=== PATIENT | female | born 1945 | race Caucasian/White ===

== ENCOUNTER 2019-01-24 12:11 | Day surgery (SDC) | payer MEDICARE ==
[~2019-01-24] VITALS: Ht 180.3 cm; Wt 122.5 kg
--- NOTE | ~2019-01-24 | OR ---
[facility] [address], [place] [address] Draft DATE OF OPERATION: 01/24/2019 SURGEON: Ruddy Camarena MD PREOPERATIVE DIAGNOSES: 1. Constipation. 2. Atrial fibrillation with chronic anticoagulation. POSTOPERATIVE DIAGNOSES: 1. Extensive diverticulosis. 2. Hyperplastic polyps of rectosigmoid. 3. Possible small adenomatous polyp, right colon (excised). PROCEDURE: Total colonoscopy to cecum with cold morcellation polypectomy x3. ANESTHESIA: Intravenous sedation, fentanyl 100 mcg, Versed 7 mg. INDICATION: This 73-year-old white woman is a patient of Mary Noyola, known to me from the past. She last underwent colonoscopy in 2010. She was noted to have diverticulosis. She is chronically anticoagulated for atrial fibrillation. She is symptom free except for significant constipation, but no associated rectal bleeding. She is off her Coumadin now for surveillance colonoscopy. She understands the risk of bleeding, infection, perforation and wished to proceed. FINDINGS: The prep was good. Complete colonoscopy was undertaken to the cecum. There were numerous diverticula of the sigmoid and left colon. There were scattered diverticula throughout the colon. There were few small hyperplastic polyps in the rectosigmoid which were excised largely and a distinct probable adenomatous small polyp of the right colon which was excised. There were no other findings of concern. DESCRIPTION OF PROCEDURE: The patient was brought to the endoscopy suite and placed in lateral decubitus position, given intravenous sedation to the point of slurred speech and nystagmus. Digital rectal examination was normal. An Olympus video colonoscope was passed in the rectum and manipulated throughout the PATIENT NAME: GUILHERME BELLO OPERATIVE REPORT DATE OF : 47 REPORT #: [id number] PHYSICIAN: RUDDY CAMARENA MD PCP: MARY NOYOLA REPORT IS CONFIDENTIAL AND NOT TO BE RELEASED WITHOUT AUTHORIZATION [facility] [address] [place] [id number] Draft colon noting numerous diverticula of the sigmoid and left colon. Ultimately, scope was passed to the cecum. The ileocecal valve was normal. Irrigation was undertaken. The scope was carefully withdrawn. In the mid ascending colon, was a small adenomatous appearing polyp. This was excised with cold morcellation technique. Further withdrawal of the scope showed no abnormalities to the rectosigmoid where small cluster of hyperplastic changes were noted to represent excised. Retroflexed view showed no other abnormalities. Scope was removed. The patient was taken to the recovery room in good condition. CONCLUDING DIAGNOSES: Adenomatous polyp of right colon completely excised, small hyperplastic polyps also excised. PLAN: Repeat colonoscopy in 5 years or sooner if clinically indicated. She will return to the ongoing care of BRIAN Castañeda. MD ARSENIO Schmid/MCKENZIE /[id number] cc: BRIAN Castañeda Copies: MARY NOYOLA ~ PATIENT NAME: GUILHERME BELLO OPERATIVE REPORT DATE OF : 47 REPORT #: [id number] PHYSICIAN: RUDDY CAMARENA MD PCP: MARY NOYOLA REPORT IS CONFIDENTIAL AND NOT TO BE RELEASED WITHOUT AUTHORIZATION
[~2019-01-24 12:11] MED LIST: CALCIUM + VITA1 EACH PO; DILTIAZEM 24HR180 M1 PO; ERYTHROMYCIN1 GM OS; FISH OIL 1,0001 EAC3 PO; FLAX OIL1000 MG PO; FOLIC ACID0.8 M1 PO; GARLIC1000 MG PO; JANTOVEN4 MG PO; LEVOTHYROXINE88 MCG PO; NEURONTIN300 MG PO; NIACIN500 M1 PO; TRIAMTERENE-HC1 EAC2 PO
[2019-01-24] MEDS ORDERED: MULTIVITAMINS1 EAC7 PO (12:26)
--- NOTE | 2019-01-24 16:46 | NUR ---
01/24/19 1646 Kianna Rainey PT ARRIVES TO PACU SLEEPY. PT CAN BE HEARD PASSING GAS.
== END 2019-01-24 17:35 | disposition home or self-care (01) ==
LOC: DS 12:11 → OPS 12:11 → DS 13:00 → OPS 13:00
PROVIDERS: Surgery
PROC: 0DBP8ZX Excision of Rectum, Via Natural or Artificial Opening Endoscopic, Diagnostic (ICD-10-PCS; 2019-01-24)
PROC: 0DBK8ZX Excision of Ascending Colon, Via Natural or Artificial Opening Endoscopic, Diagnostic (ICD-10-PCS; principal; 2019-01-24 13:00)
DX: D12.2 Benign neoplasm of ascending colon (principal); K62.1 Rectal polyp; K57.30 Diverticulosis of large intestine without perforation or abscess without bleeding; I48.91 Unspecified atrial fibrillation; I10 Essential (primary) hypertension; E03.9 Hypothyroidism, unspecified; Z88.8 Allergy status to other drugs, medicaments and biological substances; Z79.899 Other long term (current) drug therapy; Z79.01 Long term (current) use of anticoagulants
CPT/HCPCS: J2250; J3010; J7120

== ENCOUNTER 2021-12-18 22:59 | Emergency (ER) | payer MEDICARE ==
[~2021-12-18] VITALS: Ht 180.3 cm; Wt 126.0 kg
[~2021-12-18 22:59] MED LIST changes: +MULTIVITAMINS1 EAC7 PO
[2021-12-18] MEDS ORDERED: LASIX40 MG PO (23:27)
[2021-12-18] MEDS ORDERED: K-TAB ER20 MEQ PO (23:27)
== END 2021-12-19 01:09 | disposition home or self-care (01) ==
LOC: ED 22:59
DX: R60.0 Localized edema (principal); I48.91 Unspecified atrial fibrillation; I50.9 Heart failure, unspecified; E03.9 Hypothyroidism, unspecified; Z87.891 Personal history of nicotine dependence; Z88.8 Allergy status to other drugs, medicaments and biological substances; Z79.899 Other long term (current) drug therapy; Z79.01 Long term (current) use of anticoagulants
CPT/HCPCS: 93971; 99283-25

== ENCOUNTER 2025-10-06 13:04 | Emergency (ER) | payer MEDICARE, OTHER ==
[~2025-10-06] VITALS: Ht 180.3 cm; Wt 130.1 kg
--- OUTSIDE RECORDS SUMMARY | ~2025-10-06 | XMS | Continuity of Care Document ---
Demographics + + + | Address | [address] | | | [place] [address] | + + + | Preferred Language | Unknown | + + + | Marital Status | Never | + + + | Lutheran Affiliation | Unknown | + + + | Race | White | + + + | Ethnic Group | Not or | + + + Author + + + | Author | [facility] | + + + | Organization | [facility] | + + + | Address | [address] | | | [place] [address] | + + + | Phone | | + + + Care Team Providers + + + + | Care Fish Agent Name | Role | Phone | + + + + Unavailable | Unavailable | + + + + Allergies No information. Encounters No information. Functional Status No information. Immunizations No information. Medications + + + + | date | description | facility | + + + + | (no date) | GABAPENTIN | [facility] | | | | [facility] | + + + + | (no date) | POTASSIUM CHLORIDE | [facility] | | | | [facility] | + + + + | (no date) | NIACIN | [facility] | | | | [facility] | + + + + | (no date) | GARLIC | [facility] | | | | [facility] | + + + + | (no date) | FUROSEMIDE | [facility] | | | | [facility] | + + + + | (no date) | FOLIC ACID | [facility] | | | | [facility] | + + + + | (no date) | FLAXSEED OIL | [facility] | | | | [facility] | + + + + | (no date) | Erythromycin Base | [facility] | | | | [facility] | + + + + | (no date) | | [facility] | | | TRIAMTERENE/HYDROCHLOROTHIA | [facility] | | | ZID | | + + + + | (no date) | CALCIUM CARBONATE/VITAMIN | [facility] | | | D3 | [facility] | + + + + | (no date) | DILTIAZEM HCL | [facility] | | | | [facility] | + + + + | (no date) | WARFARIN SODIUM | [facility] | | | | [facility] | + + + + | (no date) | LEVOTHYROXINE SODIUM | [facility] | | | | [facility] | + + + + Problems No information. Procedures No information. Results/Labs No information. Social History +--------+ + + | date | description | facility | +--------+ + + Vital Signs No information."
[~2025-10-06 13:04] MED LIST changes: +K-TAB ER20 MEQ PO; +LASIX40 MG PO
[2025-10-06] MEDS ORDERED: OXYCODONE/APAP 5/325 TAB PO ONE (13:45)
[2025-10-06] MEDS ORDERED: ONDANSETRON 4 MG TAB ODT SL ONE (13:45)
[2025-10-06 14:40] LABS: BASOPHILS 0.3 % (0.1-1.2); EOSINOPHILS 1.3 % (0.7-5.8); LYMPHOCYTES 22.1 % (19.3-51.7); MCH 27.7 PG (25.6-32.2); MCHC 31.4 g/dL (32.2-35.5); MCV 88.3 fL (79.4-94.8); MONOCYTES 7.0 % (4.7-12.5); NEUTROPHILS 69.0 % (34.0-71.1); RBC 5.05 M/uL (3.93-5.22)
[2025-10-06 14:59] LABS: INR 2.28 (0.80-1.30); PROTIME 23.8 Sec (11.2-14.2)
[2025-10-06 15:01] LABS: ALT (SGPT) 23.0 U/L (14-59); AST (SGOT) 15.0 U/L (15-37); GLOMERULAR FILTRATION RATE,EST 74.0 mL/min (>60); PROTEIN, TOTAL 7.9 g/dL (6.4-8.2); UREA NITROGEN 15.0 mg/dL (7-18)
[2025-10-06] MEDS ORDERED: predniSONE 20 MG TAB PO ONE (15:15)
[2025-10-06] MEDS ORDERED: COLCHICINE 0.6 MG TAB PO ONE (15:15)
[2025-10-06] MEDS ORDERED: COLCHICINE0.6 M1 PO (15:24)
[2025-10-06] MEDS ORDERED: PREDNISONE20 MG PO (15:24)
[2025-10-06] MEDS ORDERED: PERCOCET 5-3251 EACH PO (15:25)
[2025-10-06 15:56] VITALS: BP 170/95
== END 2025-10-06 15:59 | disposition home or self-care (01) ==
LOC: ED 13:04
PROVIDERS: Emergency Medicine
DX: M10.9 Gout, unspecified (principal); E03.9 Hypothyroidism, unspecified; I50.9 Heart failure, unspecified; Z79.01 Long term (current) use of anticoagulants; Z79.899 Other long term (current) drug therapy; Z87.891 Personal history of nicotine dependence
CPT/HCPCS: 36415; 73110; 80053; 84550; 85025; 85610; 99283; J7512

== ENCOUNTER 2025-10-16 11:00 | Day surgery (SDC) | payer MEDICARE, OTHER ==
[~2025-10-16] VITALS: Ht 175.3 cm; Wt 130.0 kg
[~2025-10-16 11:00] MED LIST changes: +CALCIUM + D3 E1 EACH PO; +COLCHICINE0.6 M1 PO; +FLAXSEED1000 MG PO; +FLUAD IM; +FOLIC ACID 0.4 MG PO; +IBLOOD GLUCOSE TEST STRIP 1 EA TEST VI PRN; -K-TAB ER20 MEQ PO; +KLOR-CON M2020 MEQ PO; +LACTATED RINGER'S 1,000 ML IV SCH; +LIDOCAINE HCL 1% 5 ML SDV INJ ONE; +ODORLESS GARL1250 MG PO; +OMEGA-31000 MG PO; +PERCOCET 5-3251 EACH PO; +PREDNISONE20 MG PO; +PREVNAR 20 SYR0.5 ML IM; +VITAMIN B121000 MCG PO
[2025-10-16 11:09] VITALS: BP 179/99
[2025-10-16] MEDS ORDERED: LIDOCAINE HCL 2% 5 ML SDV ONE (13:58)
[2025-10-16] MEDS ORDERED: PHENYLEPHRINE HCL IN 0.9% NACL 1 MG/10 ML SYR ONE (14:23)
--- NOTE | 2025-10-16 14:48 | NUR ---
10/16/25 1447 Alison Rivers 1442-PATIENT ARRIVED TO PACU ON 6L MASK RR EVEN REACTIVE TO VERBAL STIMULI DENIES PAIN OR NAUSEA. ABDOMEN SOFT. ORIENTED TO PACU ENCOURAGED TO PASS GAS. PATIENT COLD WARM BLANKETS GIVEN. AFIB HR UPPER 50'S-60'S. IVF INFUSING. 1445-PATIENT ON RA 95% RR EVEN. SLEEPING AFIB HR 60'S.
[2025-10-16 15:30] VITALS: BP 156/75
--- NOTE | 2025-10-17 12:50 | OR ---
[facility] [address], [place] [address] Signed DATE OF OPERATION: 10/16/2025 SURGEON: Ruddy Camarena MD PREOPERATIVE DIAGNOSES: 1. Colon screening. 2. History of adenomatous polyps and diverticulosis. POSTOPERATIVE DIAGNOSIS: Extensive diverticulosis coli. No evidence of polyps. PROCEDURE: Total colonoscopy to cecum. ANESTHESIA: Intravenous sedation, propofol infusion, Daniel Linares CRNA. INDICATION: This 79-year-old white woman is a patient Dr. Mary Noyola who last underwent colonoscopy in 2019 where she was found to have diverticulosis as well as a rectal and right-sided adenomatous polyp. She has no current symptoms of bleeding, diarrhea, or constipation. She has been offered followup in this time interval. She understands the risks of bleeding, infection, and perforation. FINDINGS: The prep was adequate. Complete colonoscopy was undertaken of the cecum. There were numerous diverticula throughout the entire colon. No evidence of polyps or colitis. DESCRIPTION OF PROCEDURE: The patient was brought to the endoscopy suite and placed in lateral decubitus position, given intravenous sedation to the point of slurred speech and nystagmus with full cardiopulmonary monitoring by the lock operator with propofol infusional technique. Digital rectal examination was normal. The patient had been off of Coumadin for four days it is noted. The Olympus video colonoscope was passed in the rectum and manipulated throughout the colon ultimately intubating the cecum. The ileocecal valve and appendiceal orifice were normal. Diverticula were noted throughout the colon. The scope was withdrawn and confirming diverticulosis with no evidence of recurrent or persistent polyp. The scope was removed. The patient was taken to recovery room in good condition. Electronically Signed By: RUDDY CAMARENA MD 10/17/25 9580 PATIENT NAME: GUILHERME BELLO OPERATIVE REPORT DATE OF : 47 REPORT #: [id number] PHYSICIAN: RUDDY CAMARENA MD PCP: MARY NOYOLA REPORT IS CONFIDENTIAL AND NOT TO BE RELEASED WITHOUT AUTHORIZATION [facility] [address] [facility] [place], [place] [address] Signed CONCLUDING DIAGNOSIS: Diverticulosis. No sign of polyps. PLAN: Recommend repeat colonoscopy in 10 years, sooner if clinically indicated based on current guidelines. Recommend high-fiber diet as regards to diverticula. She may restart her Coumadin promptly. MD ARSENIO Schmid/MCKENZIE /[id number] cc: BRIAN Castañeda Copies: MARY NOYOLA ~ Electronically Signed By: RUDDY CAMARENA MD 10/17/25 1250 PATIENT NAME: GUILHERME BELLO OPERATIVE REPORT DATE OF : 47 REPORT #: [id number] PHYSICIAN: RUDDY CAMARENA MD PCP: MARY NOYOLA REPORT IS CONFIDENTIAL AND NOT TO BE RELEASED WITHOUT AUTHORIZATION
== END 2025-10-16 15:30 | disposition home or self-care (01) ==
LOC: DS 11:00
PROVIDERS: ATTEND Surgery
PROC: 0DJD8ZZ Inspection of Lower Intestinal Tract, Via Natural or Artificial Opening Endoscopic (ICD-10-PCS; principal; 2025-10-16 13:30)
DX: Z12.11 Encounter for screening for malignant neoplasm of colon (principal); K57.30 Diverticulosis of large intestine without perforation or abscess without bleeding; Z86.0101 Personal history of adenomatous and serrated colon polyps; I48.91 Unspecified atrial fibrillation; I10 Essential (primary) hypertension; E03.9 Hypothyroidism, unspecified
CPT/HCPCS: 00811; 85610; J0165; J2003; J2704; J7121